=== PATIENT | male | born 1965 | race Caucasian/White ===

== ENCOUNTER 2017-02-23 16:12 | Emergency (ER) | payer BC ==
[~2017-02-23] VITALS: Ht 167.6 cm; Wt 96.2 kg
[2017-02-23] MEDS ORDERED: LOSA25TA13 PO (16:52)
[2017-02-23] MEDS ORDERED: FAMOTIDINE 20 MG TABLET PO ONE (17:30)
[2017-02-23] MEDS ORDERED: MAG HYDROX/AL HYDROX/SIMETH 30 ML LIQUID UDC PO ONE (17:30)
--- NOTE | 2017-02-23 18:06 | NUR ---
MSE COMPLETED, PT D/C'D HOME, ACI GIVEN. PT AMBULATED W/O DIFF/TOOK ALL BELONGINGS. PT STATED PAIN DECREASED AFTER GI COCKTAIL.
[2017-02-23 18:08] VITALS: BP 132/88
== END 2017-02-23 18:09 | disposition home or self-care (01) ==
LOC: ER 16:12
DX: R10.12 Left upper quadrant pain (principal); K58.9 Irritable bowel syndrome, unspecified
CPT/HCPCS: A4663